=== PATIENT | female | born 1975 | race Caucasian/White ===

== ENCOUNTER 2021-02-20 07:38 | Emergency (ER) | payer OTHER ==
[~2021-02-20] VITALS: Ht 182.9 cm; Wt 112.9 kg
[2021-02-20 07:57] VITALS: BP 150/96
--- NOTE | 2021-02-20 08:02 | NUR ---
Patient to bed 11. RN evaluating the patient at bedside.
--- NOTE | 2021-02-20 08:05 | NUR ---
Pt presents to ED c/o lower abdominal pain since yesterday. Pt awake and alert A&Ox4. Per pt she had x3 episodes of diarrha and x1 emesis episode yesterday. Pt currently denies N/V/D. Last BM today 02/20/21. Pt reports having blood in stool today. Lower abdominal pain is non-radiating, currently 8/10, pressure pain. Denies any urinary symptoms. Bed in lowest position, bed rail up x1, hob elevated. Pt placed on cardiac tele monitor.
--- NOTE | 2021-02-20 08:38 | NUR ---
Dr. Saucedo is evaluating the patient at bedside.
[2021-02-20] MEDS ORDERED: KETOROLAC 15 MG/ML VIAL IVP ONE (08:45)
--- NOTE | 2021-02-20 09:00 | NUR ---
Consent for CT scan was signed
[2021-02-20 09:02] LABS: BILIRUBIN,URINE NEGATIVE (NEGATIVE); BLOOD, URINE 3+ (NEGATIVE); COLOR,URINE YELLOW (YELLOW); LEUKOCYTE ESTERASE ,URINE NEGATIVE (NEGATIVE); NITRITE, URINE NEGATIVE (NEGATIVE); UGLUCOSE NEGATIVE (NEGATIVE)
[2021-02-20 09:03] LABS: BASOPHILS % (AUTO) 0.3 % (0.0-2.0); EOSINOPHILS # (AUTO) 0.1 K/uL (0-0.4); HEMATOCRIT 41.5 % (36-48); HEMOGLOBIN 13.4 g/dL (12.0-16.0); LYMPHOCYTES # (AUTO) 1.3 K/uL (2.5-16.5); LYMPHOCYTES % (AUTO) 11.8 % (20.5-51.1); MEAN CORPUSCULAR HEMOGLOBIN 26 pg (27-31); MEAN CORPUSCULAR HGB CONC 32 g/dL (33-37); MEAN CORPUSCULAR VOLUME 79.6 fL (80-94); MONOCYTES # (AUTO) 0.6 K/uL (0.8-1.0); MONOCYTES % (AUTO) 5.8 % (1.7-9.3); NEUTROPHILS # (AUTO) 9.1 K/uL (1.8-7.7); NEUTROPHILS % (AUTO) 81.1 % (42.2-75.2); PLATELET COUNT (AUTO) 357 K/uL (140-450); RED BLOOD CELL COUNT(AUTO) 5.22 MIL/uL (4.20-5.40); RED CELL DISTRIBUTION WIDTH 14.8 % (11.6-13.7); WHITE BLOOD COUNT (AUTO) 11.1 K/uL (4.8-10.8)
--- NOTE | 2021-02-20 09:04 | NUR ---
20 gauge IV established in right AC. Blood collected and given to phleb.
[2021-02-20 09:07] LABS: APPEARANCE,URINE CLOUDY (CLEAR)
[2021-02-20 09:16] LABS: WBC,URINE 0-5 /HPF (0-5); YEAST,URINE None Seen /HPF (None Seen)
[2021-02-20 09:16] LABS: ALBUMIN 4.2 g/dL (3.4-5.0); ANION GAP 14.3 (8-16); CARBON DIOXIDE 25.2 mmol/L (21-32); CREATININE 1.1 mg/dL (0.6-1.3); POTASSIUM 4.5 mmol/L (3.5-5.1); TOTAL BILIRUBIN 0.5 mg/dL (0.0-1.0)
--- NOTE | 2021-02-20 09:18 | NUR ---
Pt reports pain level decreased to 5/10 .
--- NOTE | 2021-02-20 09:34 | NUR ---
Pt to CT via wheelchair
--- NOTE | 2021-02-20 09:50 | NUR ---
Pt back from CT and placed on cardiac tele monitor. Current pain level 0/10.
[2021-02-20] MEDS ORDERED: PIPERACILLIN/TAZOBACTAM 4.5 GM in DEXTROSE 5% 100 ML IV ONE (10:30)
[2021-02-20] MEDS ORDERED: PIPERACILLIN/TAZOBACTAM 4.5 GM VIAL IV ONE (10:33)
[2021-02-20] MEDS ORDERED: METR500T1 PO (11:19)
[2021-02-20] MEDS ORDERED: ACET-6951 PO (11:19)
[2021-02-20] MEDS ORDERED: CIPR500T4 PO (11:19)
[2021-02-20 11:49] VITALS: BP 114/79
--- NOTE | 2021-02-20 11:49 | NUR ---
Patient discharged with v/s stable. Written and verbal after care instructions given and explained. Patient alert, oriented and verbalized understanding of instructions. Ambulatory with steady gait. All questions addressed prior to discharge. ID band removed. Patient advised to follow up with PMD. Rx of Flagyl, Cipro, Acetaminophen with Codeine given. Patient educated on indication of medication including possible reaction and side effects. Opportunity to ask questions provided and answered.
== END 2021-02-20 11:49 | disposition home or self-care (01) ==
LOC: MED 07:38
DX: K52.9 Noninfective gastroenteritis and colitis, unspecified (principal); K92.2 Gastrointestinal hemorrhage, unspecified; I10 Essential (primary) hypertension; Z79.899 Other long term (current) drug therapy
CPT/HCPCS: 36415; 74177; 80053; 81001; 81025; 83690; 85025; 96365; 96375; 99285; J1885; J2543; Q9967